=== PATIENT | female | born 1955 | race African-American/Black ===

== ENCOUNTER 2017-11-05 19:01 | Emergency (ER) | payer OTHER ==
[~2017-11-05] VITALS: Ht 162.6 cm; Wt 65.0 kg
[2017-11-05 19:06] VITALS: BP 209/123
== END 2017-11-05 20:08 | disposition left against medical advice (07) ==
LOC: ER 19:01
DX: Z53.21 Procedure and treatment not carried out due to patient leaving prior to being seen by health care provider (principal)